=== PATIENT | male | born 1955 | race Caucasian/White ===

== ENCOUNTER 2023-08-05 09:45 | Outpatient (RCR) | payer OTHER, SELFPAY ==
--- NOTE | 2023-07-19 10:54 | ST.OPIE ---
Visit Care Team Role Provider Type Bernardino Melgoza MD Attending Provider Non-Staff Family Provider Primary Care Provider Referring Provider Specialty: Internal Medicine Address: [address] [place] [address], [id number] Email: Speech-Language Pathology Initial Evaluation ON SITE NURSE Adult Cognitive Linguistic Eval Start: 07/19/23 10:22 Freq: Status: Active Protocol: Document 07/19/23 10:22 BROOKE (Rec: 07/19/23 10:29 BROOKE [id number]) Adult Cognitive Linguistic Evaluation Session Time Visit Start Time 09:00 Visit Stop Time 09:45 Total Visit Minutes 45 Visit Information Visit Number Initial Evaluation Plan of Care Dates 07/19/23-09/18/23 Insurance Information [place] Referral Referring Provider Dr. 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 He is accompanied by his . He reports he has had a lot of natural recovery, however notices he has slowed down. He states some mild lingering slurred speech and that he is much more deliberate about speaking now . He reports he slurs his speech more when he is tired. He also reports some mild problem solving deficits, specifically having to take more time to solve a problem. PMHx significant for HTN, diabetes. Hearing Hearing Level Normal Vision Vision Status Not Impaired Previous Therapy Previous Speech-Language Therapy No Subjective Patient Report See patient history Assessment Oral Motor Examination Completed Yes Results Mild lingual and labial generalized weakness and reduced ROM. Facial integrity is symmetrical. Informal Assessment Receptive Language Normal Yes Expressive Language Normal Yes Pragmatic Language Normal Yes Speech Normal No Speech Impairment(s) Imprecise articulation Cognition Normal Yes Formal Assessment Standardized Test/Screener Type Cognitive Linguistic Quick Test (CLQT) Administration Complete Results ST administered the CLQT with Pt scoring a total 4.0 indicating a severity rating of WNL composite rating. He scored the following on each section: Attention 199- WNL Memory 164- WNL Executive Functions 29- WNL Language 31- WNL Visuospatial skills 96- WNL Clock drawing 13- WNL Pt demonstrated strengths in attention and memory and deficits in language and executive functions. Findings/Results Language Function Within functional limits Cognitive Function Within functional limits Findings Pt presents with mild dysarthria characterized by slurred speech. He reports slight changes in problem solving abilities, however Pt scored WNL on standardized test and states he has noticed improvements every day Cognitive Communication Deficits Self-awareness of Cognitive- Predictive awareness (able to Communication Deficits predict problem; impact of impairments) Prognosis Prognosis Good Based on Cognitive status,Family support Plan of Care Speech-Language Treatment Yes Frequency 1x/week Duration 2 months Patient/Caregiver Education Described results of evaluation,Patient expressed understanding of evaluation, Patient expressed agreement with goals and treatment plans ,Family/caregivers expressed understanding of evaluation, Family/caregivers expressed agreement with goals and treatment plan,Patient requires further education/ training,Family/caregivers require further education/ training Short Term Goals STG 1 Pt will participate in oral motor speech tasks to improve lingual and labial strength, ROM and motility for articulation with min cues. STG 2 Pt will utilize compensatory strategies of reduced rate, over articulation, and increased loudness with min cues. Jail Goals LTG1 Pt will improve intelligibility of speech for functional communication.
--- NOTE | 2023-07-19 10:55 | ST.OPPOC ---
Physical, Occupational & Speech Therapy At [facility] Visit Care Team Role Provider Type Bernardino Melgoza MD Attending Provider Non-Staff Family Provider Primary Care Provider Referring Provider Address: [address] [place] [address], [id number] Speech Pathology Plan of Care Plan of Care Dates 07/19/23-09/18/[address] Melgoza Patient History Pt is a 68 year old male seen this date for 1:1 speech/cognitive/linguistic evaluation s/p CVA that he states occurred about a month ago. He is accompanied by his . He reports he has had a lot of natural recovery, however notices he has slowed down. He states some mild lingering slurred speech and that he is much more deliberate about speaking now. He reports he slurs his speech more when he is tired. He also reports some mild problem solving deficits, specifically having to take more time to solve a problem. PMHx significant for HTN, diabetes. Self-awareness of Cognitive- Predictive awareness (abl Communication Deficits Short Term Goals STG 1 Pt will participate in oral motor speech tasks to improve lingual and labial strength, ROM and motility for articulation with min cues. STG 2 Pt will utilize compensatory strategies of reduced rate, over articulation, and increased loudness with min cues. Prison Goals LTG1 Pt will improve intelligibility of speech for functional communication. Comment: Electronically Signed by: LETTY Coe 07/19/23 [id number] If you are in agreement with this Plan of Care, please return a signed and dated copy. I have reviewed this Plan of Care and certify that the skilled therapy services above are required to meet the patient?s needs. Physician Signature Date Printed Name and Credentials Clinical Instructor Signature Printed Name and Credentials
--- NOTE | 2023-08-05 10:09 | ST.OPTN ---
Visit Care Team Role Provider Type Bernardino Melgoza MD Attending Provider Non-Staff Family Provider Primary Care Provider Referring Provider Address: [address] [place] [address], [id number] [facility] Treatment Note [facility] Treatment Note Start: 08/05/23 10:03 Freq: Status: Active Protocol: Document 08/05/23 10:03 BROOKE (Rec: 08/05/23 10:08 BROOKE [id number]) Speech Pathology Treatment Note Session Time Visit Start Time 09:45 Visit Stop Time 10:15 Total Visit Minutes 30 Visit Information Visit Number 2 Plan of Care Dates 07/19/23-09/18/23 Setting Treatment Setting Outpatient Care Next Note Type Next Note Type Treatment Note General Information Patient History Pt is a 68 year old male seen this date for 1:1 speech/ cognitive/linguistic evaluation s/p CVA that he states occurred about a month ago. He is accompanied by his . He reports he has had a lot of natural recovery, however notices he has slowed down. He states some mild lingering slurred speech and that he is much more deliberate about speaking now . He reports he slurs his speech more when he is tired. He also reports some mild problem solving deficits, specifically having to take more time to solve a problem. PMHx significant for HTN, diabetes. Subjective Observations/Patient Presentation Pt arrived to therapy on time and was accompanied by his . Objective Short Term Goals STG 1 Pt will participate in oral motor speech tasks to improve lingual and labial strength, ROM and motility for articulation with min cues. - MET STG 2 Pt will utilize compensatory strategies of reduced rate, over articulation, and increased loudness with min cues. - MET [facility] Goals LTG1 Pt will improve intelligibility of speech for functional communication. Treatment Activities Oral motor exercises, Discharge recommendations Assessment Patient Response to Treatment Excellent Progress Towards Goals Appropriate for Discharge Assessment of Overall Progress Improving Assessment of Improvement Pt reports he has been doing his oral motor/speech exercises and states he has no questions or concerns. His reports she has been making sure he completes them. Pt appeared 100% intelligble, and states his speech still feels slow/slurred at times, especially at night. However, Pt states he is doing a lot better and can hold conversations with people with no difficulties. Pt reported he would like to be discharged . ST agrees with Pt d/t him independent with [facility] and meeting his goals. ST recommended Pt continue HEP and come back if increase in difficulties arise. Plan Frequency of Treatment No Further Therapy Provided Patient/Caregiver Instruction Home Exercise Program,Plan of Care,Questions/Concerns
== END 2023-08-09 13:56 | disposition home or self-care (01) ==
LOC: SP 09:45
PROVIDERS: Family Provider Internal Medicine; PCP Internal Medicine; Referring Provider Internal Medicine; Visit Provider Internal Medicine
DX: Z86.73 Personal history of transient ischemic attack (TIA), and cerebral infarction without residual deficits (principal)
CPT/HCPCS: 92507; 92523